=== PATIENT | male | born 1975 | race Caucasian/White ===

== ENCOUNTER 2025-06-29 14:56 | Emergency (ER) | payer BC, SELFPAY ==
[2025-06-29 15:09] VITALS: BP 190/106
[2025-06-29 15:51] LABS: Hematocrit 42.0 % (39.0-52.0); Hemoglobin 14.0 g/dL (13.0-18.0); Mean Corp Hgb Conc. 33.3 g/dL (33.0-37.0); Mean Corpuscular Volume 86.8 fL (80.0-94.0); Nucleated Red Blood Cells % 0 % (-); Platelet Count 324 10^3/uL (130-400); Red Cell Dist. Width 13.6 % (11.5-14.5)
[2025-06-29 15:53] LABS: ALT (SGPT) 33 U/L (0-50); AST (SGOT) 28 U/L (17-59); Albumin 4.1 g/dl (3.5-5.0); Alkaline Phosphatase 76 U/L (38-126); Blood Urea Nitrogen 15 mg/dl (9-20); Calcium 9.2 mg/dl (8.4-10.2); Carbon Dioxide 25 mmol/L (22-30); Chloride 102 mmol/L (98-107); Glucose 131 mg/dl (70-99); Potassium 4.5 mmol/L (3.5-5.1); Sodium 134 mmol/L (135-145); Total Protein 8.0 g/dl (6.3-8.2); eGFR > 60.00
[2025-06-29 15:56] LABS: Troponin I 0.016 ng/ml
--- NOTE | 2025-06-29 16:03 | ED.GENMED ---
History of Present Illness
General
Chief Complaint: Chest Pain
Time Seen by Provider: 06/29/25 15:56
History of Present Illness
History of Present Illness:
50-year-old male presents to the emergency department for evaluation of pleuritic chest pain beginning today associated with left calf pain and swelling for the past 3 to 4 days, able to ambulate with moderate discomfort. No associated fevers or
chills. Denies any associated traumatic injuries. Has a prior history of DVT and PE, he is unaware whether or not these were provoked however states he was advised to discontinue Eliquis approximately 8 months ago. History of 'prediabetes' and
currently taking Mounjaro
Past History
Past History
ED Past Medical History: None and Other (Recurrent leg cellulitis)
ED Past Surgical History: None
Social History
Tobacco: Non-smoker
Alcohol: None
Living: with family
Employment: Employed
Family History
Family History: Other (Diabetes, coronary disease)
Review of Systems
Review of Systems
Allergies reviewed?: Yes
All Other Systems: ROS reviewed and negative except as documented in HPI and ROS
Phy Exam
Physical Exam
Physical Exam:
GEN: Well appearing, NAD, WDWN
HEENT: Oral mucosa moist, no scleral icterus
Cardiac: Regular rate and rhythm, no murmur
Lung: No respiratory distress, no tachypnea, lungs clear to auscultation
MSK: No gross deformity or injuries. Morbid obesity limits exam however left lower extremity appears edematous with calf edema and tenderness to the proximal and distal calf, no overt erythema, strong dorsalis pedis pulse
Skin: Good color, no pallor or jaundice, no rashes
Neuro: AO x3, moves all extremities freely
Psych: Calm, cooperative
Scores
Heart Score for Chest Pain Patients
STEMI patient?: No
History: Slightly or Non-Suspicious
ECG: Normal
Age: >45 - <65 years
Risk Factors: 1 or 2 Risk Factors
Troponin: </= Normal Limit
Heart Score for Chest Pain Patients: 2
Heart Score Risk: 2.5% MACE over next 6 weeks
Course
Orders/Labs/Results
Orders:
Orders
06/29/25 15:14
Electrocardiogram (*1) Urgent
Reason for Study: Chest Pain
06/29/25 15:15
EKG- Treatment ONCE
06/29/25 15:24
Complete Blood Count/With Diff Urgent
Comprehensive Metabolic Panel Urgent
Troponin I Urgent
06/29/25 16:03
CT Chest PE Study Urgent
Comment:
Reason For Exam: pleuritic chest pain
Venous Doppler Lwr Ext Left [US Periph Venous LOWER Ext LT] Urgent
Comment:
Reason For Exam: LLE swelling
06/29/25 17:01
D-Dimer Urgent
06/29/25 17:02
Ketorolac [Toradol] 15 mg IV NOW STA
06/29/25 18:50
Troponin I Urgent
06/29/25 18:56
Hydrocodone 5/APAP 325 [[place] 5/325] 1 tablet PO NOW STA
Abnormal Lab Results
06/29/25
15:24
Absolute Monos (auto) 0.7 H 10^3/uL
(0.1-0.6)
Sodium 134 L mmol/L
(135-145)
Glucose 131 H mg/dl
(70-99)
06/29/25 15:24
06/29/25 15:24
Vital Signs
Initial and Last Documented VS:
Initial Vital Signs
Temp Pulse Resp BP Pulse Ox
97.8 F 72 20 190/106 99
06/29/25 15:09 06/29/25 15:09 06/29/25 15:09 06/29/25 15:09 06/29/25 15:09
Last Documented Vital Signs
Temp Pulse Resp BP Pulse Ox
97.8 F 72 20 116/72 98
06/29/25 15:09 06/29/25 15:09 06/29/25 15:09 06/29/25 20:00 06/29/25 19:49
MDM/Problems Addressed
MDM/Problems Addressed:
Unclear etiology of the patient's symptoms. He was found to be negative for PE and DVT in addition to having a negative D-dimer. Additionally the patient had initial and delta troponins likely nonischemic. May be musculoskeletal, doubt infectious
given lack of findings on imaging.
*Pulse Oximetry
SaO2: 99
Oxygen Mode of Delivery: Room air
Patient hypoxic: no
*Critical Care Note
Total Time (30-74mins, 75-104mins- exclusive of procedures): Not Applicable
ED Attending Note
-
Portions of this chart may have been created with voice recognition software.� Occasional wrong word or��sound alike� substitutions may have occurred due to the inherent limitations of voice recognition software.
Discharge Plan
Departure
Patient Disposition: Home (Routine Discharge)
Date of Disposition: 06/29/25
Time of Disposition: 19:51
Patient with high blood pressure during this ER visit?: No
Discharge Problem:
Atypical chest pain
Instructions: Chest Pain That Is Not Caused by the Heart (DC)
Prescriptions:
New
celecoxib 200 mg capsule
200 mg PO BID Qty: 10 0RF
No Action
dexamethasone 4 MG tablet
6 mg PO DAILY Qty: 11 0RF
aspirin 81 MG tablet,delayed release (DR/EC)
81 mg PO DAILY Qty: 30 0RF
benzonatate 100 MG capsule
200 mg PO TIDPRN PRN (Reason: cough) Qty: 14 0RF
guaifenesin 1,200 MG tablet extended release 12hr
1,200 mg PO BID Qty: 14 0RF
metformin 1,000 MG tablet
1,000 mg PO BID Qty: 60 0RF
tamsulosin 0.4 MG capsule
0.4 mg PO DAILY Qty: 14 0RF
(DME) blood sugar diagnostic [OneTouch Verio test strips] 1 EACH strip
1 ea MC ACHS Qty: 200 0RF
(DME) lancets [OneTouch Delica Lancets] 1 EACH misc
1 ea MC ACHS Qty: 200 0RF
Referrals:
Ronnie Lin MD [Family Provider, Family Practice]
Interventions
Interventions:
*Risk Screen - Suicide Last Done: 06/29/25 15:09
*General Assessment Last Done: 06/29/25 15:09
*Neglect/Abuse Screening Last Done: 06/29/25 15:09
*ED COVID-19 Vaccine History Last Done: 06/29/25 15:09
*ED Influenza Vaccine History Last Done: 06/29/25 15:09
[facility] Fall Risk Assessment Tool Last Done: 06/29/25 19:14
*Nursing Disposition Last Done: 06/29/25 20:06
ED- Cardiac Assessment Last Done: 06/29/25 18:56
Discharge Date and Time
Discharge Date/Time: 06/29/25 20:07
Print Language: FRISIAN
[2025-06-29 16:53] VITALS: BMI 52.9
[2025-06-29] MEDS: TORADOL 15 MG IV (17:06)
[2025-06-29 17:47] LABS: D-Dimer < 0.27 ug/mlFEU (0.00-0.50)
[2025-06-29 18:51] VITALS: BP 96/83
[2025-06-29 19:00] VITALS: BP 130/71
[2025-06-29] MEDS: NORCO 5/325 1 TABLET PO (19:02)
[2025-06-29 19:24] LABS: Troponin I < 0.012 ng/ml
[2025-06-29 20:00] VITALS: BP 116/72
== END 2025-06-29 20:07 | disposition home or self-care (01) ==
LOC: EMR 14:56
PROVIDERS: Physician Assistant; EMERGENCY PHYSICIAN Emergency Medicine; FAMILY PHYSICIAN Family Medicine
DX: R07.89 Other chest pain (principal); M79.662 Pain in left lower leg; R22.42 Localized swelling, mass and lump, left lower limb; Z86.711 Personal history of pulmonary embolism; Z86.718 Personal history of other venous thrombosis and embolism; R73.03 Prediabetes
CPT/HCPCS: 99284; 96374; 71275; 80053; 84484; 85025; 85379; 93005; 93971; Q9967